=== PATIENT | female | born 1950 | race Caucasian/White ===

== ENCOUNTER 2022-03-07 08:07 | Outpatient (CLI) | payer MEDICARE, OTHER, SELFPAY ==
[2022-03-07 19:06] LABS: Basophils Absolute Auto 0.1 K/mm3 (0.0-0.1); Basophils Percent Auto 1.5 % (0.2-1.2); Eosinophils Absolute Auto 0.2 K/mm3 (0-0.3); Eosinophils Percent Auto 3.9 % (0-4.4); Hematocrit 41.9 % (37.0-47.0); Hemoglobin 13.7 g/dL (12.0-15.0); Immature Granulocyte Absolute 0.02 K/mm3 (0.00-0.031); Immature Granulocyte Percent A 0.4 % (0-0.5); Lymphocytes Absolute Auto 1.08 K/mm3 (0.9-3.2); Lymphocytes Percent Auto 20.3 % (18.3-44.2); Mean Corpuscular HGB Conc 32.7 g/dl (32-36); Mean Corpuscular Hemoglobin 29.9 pg (26-34); Mean Corpuscular Volume 91.5 fl (80-100); Mean Platelet Volume 11.1 fl (7.4-10.4); Monocytes Absolute Auto 0.6 K/mm3 (0.1-0.6); Monocytes Percent Auto 11.1 % (2.6-8.5); Neutrophils Absolute Auto 3.4 K/mm3 (1.3-6.7); Neutrophils Percent Auto 62.8 % (45.5-73.1); Platelet Count Result 202 k/mm3 (150-375); Red Blood Count 4.58 M/mm3 (4.2-5.4); Red Cell Distribution Width 13.2 % (11.5-14.5); White Blood Count 5.3 K/mm3 (4.5-10.0)
[2022-03-07 20:13] LABS: Alanine Aminotransferase 16 U/L (6-35); Albumin Level 4.4 g/dL (3.5-5.1); Alkaline Phosphatase 91 U/L (38-126); Anion Gap 13 mmol/L (8-16); Aspartate Amino Transferase 28 U/L (14-36); Bilirubin,Total 0.3 mg/dL (0.2-1.3); Blood Urea Nitrogen 14 mg/dL (7-17); Calcium 9.4 mg/dL (8.4-10.2); Carbon Dioxide 24 mmol/L (22-30); Chloride 104 mmol/L (98-107); Cholesterol 232 mg/dL (0-200); Estimated Glomerular Filt Rate > 60; Glucose 97 mg/dL (65-110); HDL Direct 73 mg/dL; Potassium 3.7 mmol/L (3.4-5.0); Sodium 141 mmol/L (137-145); Triglycerides 94 mg/dL (<150)
[2022-03-07 20:24] LABS: LDL Cholesterol Direct 101 mg/dL
[2022-03-07 20:27] LABS: Vitamin D 25 Hydroxy 99.9 ng/mL
== END 2022-03-07 08:08 | disposition home or self-care (01) ==
PROVIDERS: PCP Family Medicine; Visit Provider Physician Assistant
DX: M81.0 Age-related osteoporosis without current pathological fracture (principal); Z00.00 Encounter for general adult medical examination without abnormal findings; Z51.81 Encounter for therapeutic drug level monitoring; Z79.899 Other long term (current) drug therapy
CPT/HCPCS: 36415; 80053; 80061; 82306; 84443; 85025

== ENCOUNTER → 2022-03-21 09:50 | Outpatient (CLI) | payer MEDICARE, OTHER, SELFPAY ==
--- NOTE | ~2022-03-21 | DEXA_ITS ---
Bone Density Report Name: FABIAN HUBBARD Age: 71 Sex: Female Ethnicity: White Date of : 1950 Indication: postmenopausal; screening for osteoporosis; parental hip fracture; height loss; Referring Provider: Luciana Araujo Study: Bone densitometry was performed. Exam Date: March 21, 2022 Accession number: [id number] Bone Density: Region BMD T-score Z-score Classification AP Spine (L1-L4) 0.723 -2.9 -0.9 Osteoporosis Femoral Neck (Left) 0.599 -2.3 -0.5 Osteopenia Total Hip (Left) 0.746 -1.6 -0.1 Osteopenia Femoral Neck (Right) 0.534 -2.8 -1.1 Osteoporosis Total Hip (Right) 0.709 -1.9 -0.4 Osteopenia Total Hip Mean 0.728 -1.8 -0.3 Osteopenia World Health Organization criteria for BMD impression classify patients as: Normal (T-score at or above -1.0), Osteopenia (T-score between -1.0 and -2.5), or Osteoporosis (T-score at or below -2.5). 10-year Fracture Risk: FRAX not reported because: Some T-score for Spine Total or Hip Total or Femoral Neck at or below -2.5 Clinical Information Provided by Patient: Parent has had a hip fracture Has used the following medications: Calcium Patient maximum height was 59.5 Menopause Age: 52 Drinks caffeinated beverages Onset of menses at age 17 Number of children 2 Missed period for more than 6 months in a row Impression: The patient has osteoporosis, based on the Total Spine T-score. The patient has risk factors, including: parental hip fracture. Discussion: INCREASED RISK OF FRACTURE. BONE DENSITY IS UNDESIRABLY LOW AT ONE OR MORE SKELETAL SITES, CONSISTENT WITH POSTMENOPAUSAL OSTEOPOROSIS. This patient's lowest T-score meets the World Health Organization's (WHO) criteria for osteoporosis at one or more sites (T-score -2.5 or below). In untreated patients, the risk of osteoporotic fracture increases approximately two-fold for each 1.0 SD decrease in T-score. Low bone density is not the only risk factor for fracture; also consider factors such as patient's age, frailty or poor health, risk of falling, risk of injury, previous osteoporotic fracture, family history of osteoporosis, cigarette smoking, low body weight, etc. Not everyone with low bone mineral density has osteoporosis; osteomalacia and other metabolic bone disorders should also be considered. Patients who have osteoporosis should be evaluated for specific diseases and conditions (secondary causes) that may cause or contribute to bone loss. The [place] Association of Clinical Endocrinologists (AACE) and National Osteoporosis Foundation (NOF) recommend pharmacologic intervention for all postmenopausal women whose T-score is in this range. The patient should follow a healthful lifestyle (good nutrition with adequate calcium and vitamin D, and appropriate weight-bearing exercise). Follow-Up: Consider a lizzie
== END ==
PROVIDERS: PCP Family Medicine; Visit Provider Physician Assistant
DX: Z78.0 Asymptomatic menopausal state (principal); M85.89 Other specified disorders of bone density and structure, multiple sites; M81.0 Age-related osteoporosis without current pathological fracture
CPT/HCPCS: 77080

== ENCOUNTER → 2022-06-04 12:46 | Outpatient (CLI) | payer MEDICARE, OTHER, SELFPAY ==
--- NOTE | ~2022-06-04 | MM_ITS ---
EXAMINATION: MM scrn gaston implant BI w eber HISTORY: Screening mammogram TECHNIQUE: Craniocaudal and mediolateral oblique 3-D tomosynthesis images with implant displacement a nd synthetic 2-D images were generated. Craniocaudal and mediolateral oblique views of the breasts wi thout implant displacement were obtained using full field digital mammography. CAD analysis was submi tted and interpreted. COMPARISON: 04/11/2015 BREAST PARENCHYMAL COMPOSITION: There are scattered areas of fibroglandular density. FINDINGS: There is no evidence of suspicious mass, calcification, or architectural distortion to sugg est malignancy in either breast. There has been no suspicious interval change. IMPRESSION: 1. No mammographic evidence of malignancy. 2. Recommend routine screening mammography in one year. BI-RADS Category 1: Negative Reviewed, dictated and finalized at location A. ENDER CUTTER
== END ==
PROVIDERS: PCP Family Medicine; Visit Provider Physician Assistant
DX: Z12.31 Encounter for screening mammogram for malignant neoplasm of breast (principal)
CPT/HCPCS: 77063; 77067

== ENCOUNTER 2023-03-11 11:44 | Outpatient (CLI) | payer MEDICARE, OTHER, SELFPAY ==
[2023-03-11 18:52] LABS: Anion Gap 5 mmol/L (8-16); Blood Urea Nitrogen 11 mg/dL (7-17); Calcium 9.4 mg/dL (8.4-10.2); Carbon Dioxide 29 mmol/L (22-30); Chloride 104 mmol/L (98-107); Cholesterol 250 mg/dL (0-200); Estimated Glomerular Filt Rate > 60; Glucose 89 mg/dL (65-110); HDL Direct 78 mg/dL; Potassium 4.1 mmol/L (3.4-5.0); Sodium 138 mmol/L (137-145); Triglycerides 118 mg/dL (<150)
[2023-03-11 19:03] LABS: LDL Cholesterol Direct 109 mg/dL
[2023-03-11 19:13] LABS: Thyroid Stimulating Hormone 0.339 uIU/mL (0.465-4.680)
[2023-03-11 19:25] LABS: Vitamin D 25 Hydroxy 72.2 ng/mL
[2023-03-11 19:41] LABS: Basophils Absolute Auto 0.1 K/mm3 (0.0-0.1); Basophils Percent Auto 1.7 % (0.2-1.2); Eosinophils Absolute Auto 0.2 K/mm3 (0-0.3); Eosinophils Percent Auto 2.3 % (0-4.4); Hematocrit 41.9 % (37.0-47.0); Hemoglobin 13.9 g/dL (12.0-15.0); Immature Granulocyte Absolute 0.02 K/mm3 (0.00-0.031); Immature Granulocyte Percent A 0.3 % (0-0.5); Lymphocytes Absolute Auto 1.58 K/mm3 (0.9-3.2); Lymphocytes Percent Auto 23.8 % (18.3-44.2); Mean Corpuscular HGB Conc 33.2 g/dl (32-36); Mean Corpuscular Hemoglobin 30.2 pg (26-34); Mean Corpuscular Volume 91.1 fl (80-100); Mean Platelet Volume 10.9 fl (7.4-10.4); Monocytes Absolute Auto 0.7 K/mm3 (0.1-0.6); Neutrophils Absolute Auto 4.1 K/mm3 (1.3-6.7); Neutrophils Percent Auto 61.9 % (45.5-73.1); Platelet Count Result 238 k/mm3 (150-375); Red Cell Distribution Width 12.4 % (11.5-14.5); White Blood Count 6.6 K/mm3 (4.5-10.0)
[2023-03-11 20:17] LABS: Hepatitis C Virus Antibody Negative (Negative)
== END 2023-03-11 11:45 | disposition home or self-care (01) ==
LOC: ANHGOSHLAB 11:45
PROVIDERS: PCP Family Medicine; Visit Provider Nurse Practitioner Family
DX: J31.0 Chronic rhinitis (principal); M81.0 Age-related osteoporosis without current pathological fracture; R09.89 Other specified symptoms and signs involving the circulatory and respiratory systems
CPT/HCPCS: 36415; 80048; 80061; 82306; 84443; 85025; 86803

== ENCOUNTER 2023-03-17 08:02 | Emergency (ER) | payer MEDICARE, OTHER, SELFPAY ==
--- NOTE | 2023-03-17 08:03 | ED.URI ---
HPI - URI/Sore Throat General Chief Complaint: Upper Respiratory Infection Stated Complaint: COUGH Time Seen by Provider: 03/17/23 08:02 Source: patient Mode of arrival: ambulatory Limitations: no limitations History of Present Illness HPI Narrative: Patient is a 72-year-old female who presents with 4 days of cough and congestion. Patient states this started as congestion and headache and has settled into her chest causing cough. Patient states her throat hurts from coughing and is keeping her up at night. Patient has tried Mucinex DM in Tylenol and ibuprofen with no relief. Patient states she got her flu shot on Friday. Patient has done self COVID tests that have been negative. Denies any fever, chills, nausea, vomiting, diarrhea. Related Data Allergies Allergy/AdvReac Type Severity Reaction Status Date / Time amoxicillin Allergy Severe THROAT Verified 03/17/23 08:12 SWELLING clavulanic acid Allergy Severe THROAT Verified 03/17/23 08:12 SWELLING alendronate sodium AdvReac Other Verified 03/17/23 08:12 [From Fosamax] denosumab [From Prolia] AdvReac Other Verified 03/17/23 08:12 ANESTHESIA AdvReac Severe PONV Uncoded 03/17/23 08:12 Review of Systems Review of Systems: All systems reviewed & are unremarkable except as noted in HPI and below Constitutional: Constitutional: Denies body ache(s), Denies chills, Denies fatigue, Denies fever(s), Denies headache(s), Denies malaise and Denies weakness Eyes: Eyes: Denies blurry vision, Denies itchy eyes and Denies loss of vision ENT: Denies otalgia, Denies headache(s), Reports nasal congestion, Denies sinus pain and Reports sore throat Cardiovascular: Cardiovascular: Denies chest pain, Denies irregular heart rhythm and Denies dyspnea Respiratory: Respiratory: Reports cough and Denies dyspnea Gastrointestinal: Gastrointestinal: Denies abdominal pain, Denies diarrhea, Denies nausea and Denies vomiting Musculoskeletal: Musculoskeletal: Denies back pain, Denies myalgias and Denies arthralgias Integumentary/Breasts: Skin/Breast: Denies pruritus and Denies rash Neurologic: Denies headache(s), Denies loss of vision and Denies weakness Psychiatric: Psychiatric: Reports no additional psychiatric complaints Endocrine: Endocrine: Denies fatigue Allergic/Immunologic: Allergic/Immunologic: Denies itchy eyes PMFSH Past Medical History Medical History Osteoporosis Family History Family History Mother Cancer Hypertension Depression with anxiety Heart problem Social History Social History Smoking status: Never smoker Alcohol intake: never Substance use: never Lack of Transportation: No Lack of Food: Never True Current Housing: I Have Housing Concerned About Future Housing: No Difficulty Paying Gas/Electric Bills: No Difficulty Paying for Meds: No Currently Unemployed: No Education: Associate Degree Difficulty w/ Childcare or Family Care: No Comments At time of signature, agree with nursing past medical, surgical, social and family history. There is no relevant family history pertinent to the presenting complaint. Exam Const: General: cooperative, healthy appearing, comfortable, no acute distress and well nourished Nutritional Appearance: well nourished Orientation/consciousness: patient oriented x3 Limitations: no limitations HENMT: Head: normal to inspection, normocephalic and atraumatic Ears: hearing grossly normal bilaterally, external ears normal, TM's normal bilaterally, EAC's normal and no periauricular adenopathy Face/Nose/Sinus: Normal external nose present, Abnormal mucous membranes and turbinates present erythematous bilateral and diffuse, normal facial exam, sinuses nontender and face symmetric Face and sinus: normal facial exam, sinuses nontender and face
[2023-03-17 08:09] VITALS: BP 158/79; PULSE 90; RESP 18; TEMP 36.6; O2SAT 99
== END 2023-03-17 08:27 | disposition home or self-care (01) ==
PROVIDERS: Emergency Provider Nurse Practitioner Family; PCP Family Medicine
DX: J40 Bronchitis, not specified as acute or chronic (principal); M81.0 Age-related osteoporosis without current pathological fracture
CPT/HCPCS: 99213; G0463

== ENCOUNTER → 2023-03-24 11:47 | Outpatient (CLI) | payer MEDICARE, OTHER, SELFPAY ==
--- NOTE | ~2023-03-24 | XR_ITS ---
Clinical Indication: Acute bronchitis PA and lateral views of the chest: Comparison: None Findings: The lungs are clear, without evidence of focal consolidation or pleural effusion. Cardiome diastinal silhouette is within normal limits. Bones and soft tissues are unremarkable. Impression: Normal chest. Reviewed, dictated and finalized at location . Impression: Normal chest.
== END ==
PROVIDERS: PCP Physician Assistant; Visit Provider Physician Assistant
DX: J20.9 Acute bronchitis, unspecified (principal)
CPT/HCPCS: 71046

== ENCOUNTER 2023-04-18 10:40 | Outpatient (CLI) | payer MEDICARE, OTHER, SELFPAY ==
--- NOTE | ~2023-04-18 | MR_ITS ---
EXAMINATION: MR breast BI wo con INDICATION: Assess breast implant status TECHNIQUE: Axial T2 FSE ASSET, axial VIBRANT, Sagittal T2 FSE, Sagittal T2 STIR silicone SAT, Sagitta l STIR Water suppression COMPARISON: None FINDINGS: Motion artifact limits the examination. RIGHT BREAST: There is intracapsular rupture of the right breast implant. There is no definite eviden ce of silicone extravasation. No evidence of signal abnormalities in the axillary or internal mammary node distributions. LEFT BREAST: There is intracapsular rupture of the left breast implant. There is no definite evidence of silicone extravasation. No evidence of signal abnormalities in the axillary or internal mammary n ode distributions.] IMPRESSION: 1. Bilateral intracapsular breast implant rupture. BI-RADS Category 1: Negative Reviewed, dictated and finalized at location A. TECHNICIAN
== END 2023-04-18 10:41 | disposition home or self-care (01) ==
PROVIDERS: PCP Physician Assistant; Visit Provider Nurse Practitioner Family
DX: T85.43XA Leakage of breast prosthesis and implant, initial encounter (principal)
CPT/HCPCS: 77047

== ENCOUNTER 2023-06-03 08:09 | Outpatient (CLI) | payer MEDICARE, OTHER, SELFPAY ==
[2023-06-03 23:49] LABS: Free T4 Free Thyroxine 1.33 ng/mL (0.78-2.19)
[2023-06-04 00:04] LABS: Free T4 Free Thyroxine Reflex 1.31 ng/dL (0.78-2.19)
[2023-06-04 00:54] LABS: Total Triiodothyronine (T3) 1.16 NG/ML (0.97-1.69)
== END 2023-06-03 08:10 | disposition home or self-care (01) ==
LOC: ANHGOSHLAB 08:11
PROVIDERS: PCP Physician Assistant; Visit Provider Physician Assistant
DX: R79.89 Other specified abnormal findings of blood chemistry (principal); Z79.899 Other long term (current) drug therapy; L64.9 Androgenic alopecia, unspecified
CPT/HCPCS: 36415; 84439; 84443; 84480

== ENCOUNTER → 2023-06-10 11:13 | Outpatient (CLI) | payer MEDICARE, OTHER, SELFPAY ==
--- NOTE | ~2023-06-10 | US_ITS ---
EXAMINATION: US thyroid DATE: 06/10/2023 11:43 INDICATION: Abnormal thyroid function tests. TECHNIQUE: Multiple ultrasound images of the thyroid were obtained. COMPARISON: None. FINDINGS: The right thyroid lobe measures 4.2 x 1.9 x 1.0 cm. The left thyroid lobe measures 3.8 x 1.5 x 1.1 c m. In the right thyroid lobe, there is a 5 mm solid, hypoechoic, wider than tall nodule with smooth margin without echogenic foci (TI-RADS TR4). In the right thyroid lobe, there is a 4 mm nodule. In th e left thyroid lobe, there is a 4 mm nodule. IMPRESSION: 1. Small thyroid nodules, likely not clinically significant. No follow-up is needed. Reviewed, dictated and finalized at location A. D AUTOMOBILE ADJUSTER IMPRESSION: 1. Small thyroid nodules, likely not clinically significant. No follow-up is ne eded.
== END ==
PROVIDERS: PCP Nurse Practitioner Family; Visit Provider Nurse Practitioner Family
DX: E04.2 Nontoxic multinodular goiter (principal); R79.89 Other specified abnormal findings of blood chemistry
CPT/HCPCS: 76536

== ENCOUNTER 2023-07-10 00:31 | Day surgery (SDC) | payer OTHER, SELFPAY ==
[2023-06-30 14:39] VITALS: BMI 20.7
--- NOTE | 2023-06-30 14:57 | PC.NURSE ---
Report to the Outpatient Waiting Room, entrance under the green pavilion located off [facility], at time _0830 on date __07/10/23 . Planned Procedure Time: ___1030 . Time changes happen often and if your time is changed the preop area will call you the afternoon before. - You and your visitor will be asked to self-screen and do not enter if you have any COVID symptoms. - A mask is optional within the hospital at this time. Patients may have clear liquids (water, carbonated beverages, clear teas, apple juice) until 3 hours prior to surgery (0730 AM) with a maximum of 20 ounces. - No food from midnight until time of surgery - Infants may have breast milk until 4 hours before surgery, infant formula 6 hours prior to surgery. - Children will be allowed to drink immediately following surgery. If applicable, please bring a bottle or sippy cup to assist with drinking. Juice, water, soda, and popsicles are readily available. For infants on formula, please bring formula the day of surgery. Pacifiers are allowed. Take the following medications with a SIP of water the morning of surgery: __METHIMAZOLE, & EYE DROPS IF NEEDED___ DO NOT STOP ANY OF YOUR OTHER PRESCRIPTION MEDICATIONS PRIOR TO SURGERY ?EXCEPT THE FOLLOWING Medications to discontinue per physician Date to take last dose Please no make-up, nail luxembourgish, hairspray, perfume, deodorant, or body powder the day of surgery. No jewelry (including any body piercings) or valuables the day of surgery, leave them at home. Please take a shower or bath the night before, or the morning of, surgery with an antibacterial soap. Wear comfortable, loose fitting clothing. Children are encouraged to wear pajamas. - Jewelry must be removed prior to entering the operating room. Rings and piercings that are not removed may be cut off. - The hospital will not accept responsibility for valuables. - Please leave all valuables, including medications, at home the day of surgery. If you are going home after surgery, a licensed driver guard must drive you home. - NO public transportation without another adult if you receive anesthesia. - We recommend that an adult stay with you for 24 hours following discharge. - We also recommend that you do not drive, make important decision, drink alcoholic beverages, or take any drugs that were not prescribed by your health care provider for at least 24 hours after your discharge time. For Pediatric surgeries, we recommend two adults accompany the child home. Follow any additional instructions given to you from your surgeon. If you or anyone in your household have experienced Covid symptoms in the past week, please notify your surgeon or the nurse liaison at the phone number below for possible testing. Telephone instructions given to ___PT and asked if any additional questions and then verbalized understanding. Patient advised to call surgeon office or pre surgery nurse liaison [phone] if any additional questions.
[2023-07-10] VITALS (13 sets, daily range): BP systolic 112–165; BP diastolic 68–94; PULSE 64–95; RESP 12–20; TEMP 36.4–36.7; O2SAT 94–100
[2023-07-10] MEDS: LACTATED RINGERS 1,000 ML 30 ML IV CONT ×2 (09:05→12:38)
--- NOTE | 2023-07-10 09:17 | WPDANESEPPF ---
Anes - Initial Pre Proc Eval Procedure: Operation Date: 07/10/23 10:30 Proposed Procedures p Bilateral Breast Implant Exchange with Capsulectomy - Davian Felton MD Date/Time: 07/10/23 09:17 Surgeon: Davian Felton MD Pre Op Diagnosis: bilateral breast implant rupture Patient Data Age: 73 Gender: F Height: 1.49 m Weight: 45.9 kg Allergies Allergy/AdvReac Type Severity Reaction Status Date / Time amoxicillin Allergy Severe THROAT Verified 06/30/23 14:33 SWELLING clavulanic acid Allergy Severe THROAT Verified 06/30/23 14:33 SWELLING alendronate sodium AdvReac JAW ACH & Verified 07/10/23 08:45 [From Fosamax] WHOLE BODY ACHES denosumab [From Prolia] AdvReac JAW ACHE & Verified 07/10/23 08:45 WHOLE BODY ACHES ANESTHESIA AdvReac Severe PONV Uncoded 06/30/23 14:33 Home Medications Medication Instructions Recorded Confirmed Type inhalational spacing device #1 ea 03/17/23 06/30/23 Rx (Aerochamber MV spacer) methimazole 5 mg tablet 5 mg PO DAILY #30 tabs 06/13/23 07/10/23 Rx carboxymethylcellulose sodium 1 % 1 drp EACH EYE TID HS 06/30/23 07/10/23 History eye liquid gel drops peg 400-propylene glycol (PF) 0.4 1 drp EACH EYE TID PRN Dry Eye(S) 06/30/23 07/10/23 History %-0.3 % eye drops in a dropperette (Systane (PF)) Patient hx anesthesia problems: none Family hx anesthesia problems: none Results Review: All pre-operative results and documents have been reviewed as part of the pre-operative evaluation. [facility] Past Medical History Medical History (Updated 06/05/23 @ 11:55 by Moses Pastor PA-C) Osteoporosis Surgical History Surgical History (Updated 07/10/23 @ 09:18 by Toño Hubbard MD) History of augmentation of both breasts Family History Family History Mother Cancer Hypertension Depression with anxiety Heart problem Social History Social History Smoking packs per day: 1 Smoking cigarettes per day: 20.0 Years smoked: 17 Smoking pack-years: 17.00 Smoking status: Former smoker Tobacco type: cigarettes Second hand tobacco smoke exposure: No Smoking end date: 06/02/85 Alcohol intake: never Substance use: never Substance use type: does not use Lack of Transportation: No Lack of Food: Never True Current Housing: I Have Housing Concerned About Future Housing: No Difficulty Paying Gas/Electric Bills: No Difficulty Paying for Meds: No Currently Unemployed: No Education: Associate Degree Difficulty w/ Childcare or Family Care: No Living arrangements: with family Spiritual care concerns: No Anes - Eval Final PreProcedure Day of Procedure 07/10/23 09:17 Patient weight: normal Heart: regular rate and rhythm Lungs: clear to auscultation Airway: Mallampati scale class II Neurological: alert and oriented Last oral intake: >/= 8 hours ASA classification: II Emergent: no Anesthetic plan: proceed Anesthesia type and monitoring: general LMA and standard monitoring Results Review: All pre-operative results and documents have been reviewed as part of the pre-operative evaluation. Informed Consent: The patient's anesthetic plan and its attendant risks and benefits were discussed with the patient/family/POA. Questions were solicited and answers provided to the satisfaction of the patient/family/POA.
--- NOTE | 2023-07-10 10:31 | WPDHPUPDATE1 ---
History and Physical Update Update Date/Time: 07/10/23 10:31 History and Physical has been reviewed, including an updated exam of the patient. There are NO changes in the patient's condition. Risks, benefits, and alternatives have been discussed and questions answered. Patient agrees to proceed with procedure.
--- NOTE | 2023-07-10 10:38 | W.PM.PROC2 ---
Procedure Note - Detailed Date of Procedure 07/10/23 Pre-op Diagnosis bilateral breast implant rupture Post-op Diagnosis Same Procedure Performed Bilateral breast implant exchange Surgeon Davian Felton MD Anesthesia General Findings Old Implants: Bilateral intracapsular rupture No identifying markings on implants Previously left IMF significantly below right. Submuscular with intact inferior pectoralis New implants: Bilateral Jaky Ratliff SoftTouch 295cc Right - REF# [id number] SN [id number] Left - REF# [id number] SN [id number] Description of Procedure Preoperatively the risks, benefits, alternatives were discussed in extensive detail. I wanted to be very realistic about the risks involved as well as expectations. I was clear about how we could actually make her worse. Answered all questions to satisfaction. Voiced a clear understanding. Consent obtained. She was taken the operating room placed supine on the operating room table. Anesthesia provided by anesthesiology and prepped and draped in a standard sterile fashion. Surgical time-out was taken. 1% lidocaine and 0.25% Marcaine with epinephrine was used to provide a field block. Tegaderm nipple thakur were placed. Fifteen blade used to excise the previous IMF scars. Dissection was continued down until the capsules were identified and excised a significant portion of the capsule which was sent to pathology. These were densly adherent to the pectoralis which limited removal without significant muscle injury. I then copiously irrigated with 3 L of saline solution on TUR tubing. Verified strict hemostasis. I then irrigated with Betadine containing solution. Using a no-touch technique and a Mcfarland funnel the implant was introduced into the pocket. This was closed with 2-0 PDS followed by 3-0 Monocryl and a running subcuticular 4-0 Monocryl followed by tissue glue. Dressings were placed. She was woken taken to the PACU without difficulty. All instrument sponge counts were correct at the end of the case. Estimated Blood Loss 5 Drains No Packing No Pathology Yes (Bilateral breast capsules) Complications No immediate complications Condition Stable Disposition PACU
[2023-07-10] MEDS: TRANEXAMIC ACID 1,000MG/ISO100 1,000 MG/100 ML BAG 200 MG IVPB (11:09)
[2023-07-10] MEDS: NACL 0.9% IRRIG POUR BOTTLE 900 ML, GENTAMICIN SULFATE INJ 160 MG, CLINDAMYCIN PHOS INJ... IRRIGATION (11:10)
[2023-07-10] MEDS: BUPivacaine HCL 0.25% PF 30 ML VIAL INFILTRATE (11:10)
[2023-07-10] MEDS: ceFAZolin 2 GM/D5W 50 ML 2 GM/50 ML BAG IVPB (11:19)
[2023-07-10] MEDS: LIDO 1%/EPINEPHRINE 1:100,000 50 ML VIAL 30 ML INFILTRATE (11:47)
[2023-07-10] MEDS: fentaNYL CITRATE INJ (*CRX) 100 MCG/2 ML VIAL 25 MCG IV PUSH (13:42)
[2023-07-10] MEDS: ONDANSETRON INJ 4 MG/2 ML VIAL IV PUSH (13:45)
[2023-07-10] MEDS: diphenhydrAMINE HCl INJ 50 MG/ML VIAL 25 MG IV PUSH (14:01)
[2023-07-10] MEDS: oxyCODONE HCL (*CRX) 5 MG TAB IR PO (15:18)
== END 2023-07-10 15:55 | disposition home or self-care (01) ==
PROVIDERS: PCP Nurse Practitioner Family; Visit Provider Surgery Plastic and Reconstructive Surgery
PROC: (CPT 19342; principal; 2023-07-10 10:30)
DX: T85.41XA Breakdown (mechanical) of breast prosthesis and implant, initial encounter (principal); Y83.8 Other surgical procedures as the cause of abnormal reaction of the patient, or of later complication, without mention of misadventure at the time of the procedure; Z87.891 Personal history of nicotine dependence
CPT/HCPCS: 19371; 19325; 88184; 88304; A9270; J0690; J1100; J1200; J1580; J2001; J2405; J2704; J3010; J7120

== ENCOUNTER 2023-07-25 09:32 | Outpatient (CLI) | payer MEDICARE, OTHER, SELFPAY ==
[2023-07-25 21:25] LABS: Free T4 Free Thyroxine 1.03 ng/mL (0.78-2.19)
== END 2023-07-25 09:33 | disposition home or self-care (01) ==
PROVIDERS: PCP Nurse Practitioner Family; Visit Provider Nurse Practitioner Family
DX: R79.89 Other specified abnormal findings of blood chemistry (principal); Z79.899 Other long term (current) drug therapy
CPT/HCPCS: 36415; 84439; 84443

== ENCOUNTER 2023-09-15 14:14 | Outpatient (CLI) | payer MEDICARE, OTHER, SELFPAY ==
--- NOTE | ~2023-09-15 | XR_ITS ---
EXAMINATION: XR chest 2V Exam Date/Time: 09/15/2023 14:18 CDT HISTORY: R06.2 - Wheezing Comparison: 03/24/2023. RESULT: Lines, tubes, and devices: None. Lungs and pleura: Clear. Cardiomediastinal silhouette: Stable. Other: No acute osseous or upper abdominal finding. IMPRESSION: No acute cardiopulmonary process. Reviewed, dictated and finalized at location K.
== END 2023-09-15 14:15 ==
LOC: MICIMG 14:17
PROVIDERS: PCP Nurse Practitioner Family; Visit Provider Nurse Practitioner Family
DX: R06.2 Wheezing (principal)
CPT/HCPCS: 71046

== ENCOUNTER 2024-03-16 09:42 | Outpatient (CLI) | payer MEDICARE, OTHER, SELFPAY ==
[2024-03-16 19:23] LABS: Basophils Absolute Auto 0.1 K/mm3 (0.0-0.1); Basophils Percent Auto 1.5 % (0.2-1.2); Eosinophils Absolute Auto 0.1 K/mm3 (0-0.3); Eosinophils Percent Auto 1.1 % (0-4.4); Hematocrit 43.3 % (37.0-47.0); Hemoglobin 14.4 g/dL (12.0-15.0); Immature Granulocyte Absolute 0.03 K/mm3 (0.00-0.031); Immature Granulocyte Percent A 0.4 % (0-0.5); Lymphocytes Absolute Auto 1.32 K/mm3 (0.9-3.2); Lymphocytes Percent Auto 17.8 % (18.3-44.2); Mean Corpuscular HGB Conc 33.3 g/dl (32-36); Mean Corpuscular Hemoglobin 30.3 pg (26-34); Mean Platelet Volume 11.1 fl (7.4-10.4); Monocytes Absolute Auto 0.6 K/mm3 (0.1-0.6); Monocytes Percent Auto 8.4 % (2.6-8.5); Neutrophils Absolute Auto 5.3 K/mm3 (1.3-6.7); Neutrophils Percent Auto 70.8 % (45.5-73.1); Platelet Count Result 236 k/mm3 (150-375); Red Blood Count 4.76 M/mm3 (4.2-5.4); Red Cell Distribution Width 12.6 % (11.5-14.5); White Blood Count 7.4 K/mm3 (4.5-10.0)
[2024-03-16 19:33] LABS: Alanine Aminotransferase 19 U/L (6-35); Albumin Level 4.2 g/dL (3.5-5.1); Alkaline Phosphatase 96 U/L (38-126); Anion Gap 9 mmol/L (4-12); Aspartate Amino Transferase 41 U/L (14-36); Bilirubin,Total 0.7 mg/dL (0.2-1.3); Blood Urea Nitrogen 14 mg/dL (7-17); Calcium 9.3 mg/dL (8.4-10.2); Carbon Dioxide 27 mmol/L (22-30); Chloride 104 mmol/L (98-107); Cholesterol 236 mg/dL (0-200); Estimated Glomerular Filt Rate > 60; Glucose 83 mg/dL (65-110); HDL Direct 90 mg/dL; Potassium 3.5 mmol/L (3.4-5.0); Sodium 140 mmol/L (137-145); Triglycerides 104 mg/dL (<150)
[2024-03-16 19:41] LABS: Vitamin D 25 Hydroxy 67.4 ng/mL
[2024-03-16 19:45] LABS: LDL Cholesterol Direct 90 mg/dL
== END 2024-03-16 09:43 | disposition home or self-care (01) ==
LOC: ANHGOSHLAB 09:43
PROVIDERS: PCP Nurse Practitioner Family; Visit Provider Nurse Practitioner Family
DX: R79.89 Other specified abnormal findings of blood chemistry (principal); R09.89 Other specified symptoms and signs involving the circulatory and respiratory systems; M81.0 Age-related osteoporosis without current pathological fracture; E55.9 Vitamin D deficiency, unspecified; Z79.899 Other long term (current) drug therapy
CPT/HCPCS: 36415; 80053; 80061; 82306; 84443; 85025

== ENCOUNTER 2024-09-01 10:28 | Outpatient (CLI) | payer MEDICARE, OTHER, SELFPAY ==
--- OUTSIDE RECORDS SUMMARY | 2024-09-01 11:51 | XMS_ITS | Clinical Summary ---
Author Organization [facility] Physician Office Building [address] [place] [id number] Care Team Providers Care Body Trimmer Upholsterer Name Role Phone Kelly, [facility] Primary Care Provider [phone] Haris Fisher MD Unavailable Allergies Active Allergy Reactions Criticality Noted Date Comments Amoxicillin-Pot Clavulanate Anaphylaxis High 018 Alendronate Other (See comments) Low 05/12/2018 Jaw pain Medications CALTRATE WITH VITAMIN D3 600 mg(1,500mg) -800 unit per tablet 04/21/2018 Act lupe ergocalciferol (VITAMIN D) 50,000 unit capsule 04/21/2018 Active PREMARIN vaginal cream 03/13/2018 Active denosumab (PROLIA) 60 mg/mL syringe Inject 1 mL (60 mg total) under the skin once for 1 dose. 1 mL 05/12/2018 Active azelastine (ASTELIN) 137 mcg (0.1 %) nasal spray 05/19/2019 Active Active Problems Problem Noted Date Diagnosed Date Sensorineural hearing loss ( SNHL) of left ear with restricted hearing of right ear 07/02/2019 Assessment & Plan (07/02/2019 3:15 PM SENIOR RELATIONSHIP MANAGER): Medically cleared for hearing Aids Eliminate background when having a conversation Reduce caffeine intake, then water or other caffeine free fluids throughout the rest of the day for at least one month Tinnitus Etiology discussed and Handout provided Chronic rhinitis 07/02/2019 Assessment & Plan (07/02/2019 3:15 PM SENIOR RELATIONSHIP MANAGER): Astelin 2 sprays into each nostril while looking down over the sink, do not sniff in or blow nose after use daily Call if no improvement for change to Atrovent Localized osteoporosis witho ut current pathological fracture 05/12/2018 Assessment & Plan (05/12/2018 3:54 PM SENIOR RELATIONSHIP MANAGER): Daily weight bearing exercise Fall precautions discussed 1200 mg daily elemental calcium intake recommended 800-1000 IU of vid D recommended. Check serum vit D levels, PTH, 24 h urine calcium Might recommended Prescription vit D if very low levels are found. Start Prolia. Surgical History Surgery Date Site/Laterality Comments SECTION 2 TRANSUMBILICAL AUGMENTATION MAMMAPLASTY CARPAL TUNNEL RELEASE Right Medical History Medical History Date Comments Vitamin D deficiency Endometriosis Family History Medical History Relation Name Comments Diabetes Brother Cancer Mother Heart failure Mother Hypertension Mother Kidney disease Mother Relation Name Status Comments Brother Alive Mother Social History Tobacco Use Types Packs/Day Years Used Date Smoking Tobacco: Former Cigarettes Smokeless Tobacco: Never Alcohol Use Standard Drinks/Week Comments No 0 (1 standard drink = 0.6 oz pur e alcohol) Personal Safety Answer Date Recorded Getting School Help Needed Not on file 08/16 Comments Unknown Sex and Gender Information Value Date Recorded Sex Assigned at Not on file Legal Sex Female 9:06 AM SENIOR RELATIONSHIP MANAGER Gender Identity Not on file Sexual Orientation Not on file Obstetrics History Last Filed Vital Signs Vital Sign Reading Time Taken Comments Blood Pressure 146/92 07/02/2019 10:18 AM SENIOR RELATIONSHIP MANAGER Pulse 74 07/02/2019 10:18 AM SENIOR RELATIONSHIP MANAGER Temperature 36.4 C (97.6 F) 07/02/2019 10:18 AM SENIOR RELATIONSHIP MANAGER Respiratory Rate 14 05/12/2018 2:55 PM SENIOR RELATIONSHIP MANAGER Oxygen Saturation - - Inhaled Oxygen Concentration - - Weight 48.5 kg (107 lb) 07/02/2019 10:18 AM SENIOR RELATIONSHIP MANAGER Height 149.9 cm (4' 11 ) 07/02/2019 10:18 AM SENIOR RELATIONSHIP MANAGER Body Mass Index 21.61 07/02/2019 10:18 AM SENIOR RELATIONSHIP MANAGER Plan of Treatment Not on file Insurance MEDICARE FOR LIFE Care Teams Body Trimmer Upholsterer Relationship Specialty Start Date End Date [facility] [address] [place] [address] PCP - General 05/04/18 [place] [id number] [facility] [address] [place] [address] Consulting Physician Endocrinology Diabetes & Metabolism 05/11/18
--- OUTSIDE RECORDS SUMMARY | 2024-09-01 11:51 | XMS_ITS | Encounter Summary ---
Author Organization [facility] Address [address] [place] [address] Care Team Providers Care Manager Workers Compensation Name Role Phone Charanjit Klein MD Primary Care Provider +1- [phone] Encounter Details Date Type Department Care Team (Late st Contact Info) Description 07/17/2018 Community Orders [facility] EPICCARE LINK Charanjit Klein MD [address] [place] [phone] Social History Tobacco Use Types Packs/Day Years Used Date Smoking Tobacco: Never Assessed Comments Unknown Sex and Gender Information Value Date Recorded Sex Assigned at Not on file Legal 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 Gender Identity Not on file Sexual Orientation Not on file documented as of this encounter Plan of Treatment Not on file documented as of this encounter Results * XR KNEE RT 3 VIEW (07/17/2018 2:24 PM DIE MACHINE OPERATOR) Anatomical Region Laterality Modality Knee Radiographic Jennifer ging 07/17/2018 2:29 PM DIE MACHINE OPERATOR Narrative 07/17/2018 2:30 PM DIE MACHINE OPERATOR PATIENT NAME: SHAUNA BENAVIDEZ EXAM: Right knee 3 view DATE OF EXAM: 07/17/2018 COMPARISON EXAM: None INDICATION: Chronic lateral knee pain TECHNIQUE: AP, lateral and sunrise views FINDINGS: No soft tissue of normality. No evidence of joint effusion. No fracture or dislocation. No evidence of focal bone destructive lesion. Joint spaces are well-maintained. IMPRESSION: 1. NO SIGNIFICANT RADIOGRAPHIC ABNORMALITY. Signed: Salas Paulson MD Interpreted By: Salas Paulson MD, 07/17/2018 2:29 PM Procedure Note Salas Paulson MD - 07/17/2018 PATIENT NAME: SHAUNA BENAVIDEZ EXAM: Right knee 3 view DATE OF EXAM: 07/17/2018 COMPARISON EXAM: None INDICATION: Chronic lateral knee pain TECHNIQUE: AP, lateral and sunrise views FINDINGS: No soft tissue of normality. No evidence of joint effusion. Nofracture or dislocation. No evidence of focal bone destructive lesion.Joint spaces are well-maintained. IMPRESSION: 1. NO SIGNIFICANT RADIOGRAPHIC ABNORMALITY. Signed: Salas Paulson MD Interpreted By: Salas Paulson MD, 07/17/2018 2:29 PM Charanjit Klein MD GENERAL IMAGING Final Resu lt * XR KNEE LT 3 VIEW (07/17/2018 2:24 PM DIE MACHINE OPERATOR) Anatomical Region Laterality Modality Knee Radiographic Jennifer ging 07/17/2018 2:28 PM DIE MACHINE OPERATOR Narrative 07/17/2018 2:29 PM DIE MACHINE OPERATOR PATIENT NAME: SHAUNA BENAVIDEZ EXAM: Left knee 3 view DATE OF EXAM: 07/17/2018 COMPARISON EXAM: None INDICATION: Chronic left knee pain TECHNIQUE: AP, lateral and sunrise views FINDINGS: No soft tissue of normality. No evidence of joint effusion. No fracture or dislocation. Joint spaces are well-maintained. IMPRESSION: 1. NO SIGNIFICANT RADIOGRAPHIC ABNORMALITY. Signed: Salas Paulson MD Interpreted By: Salas Paulson MD, 07/17/2018 2:28 PM Procedure Note Salas Paulson MD - 07/17/2018 PATIENT NAME: SHAUNA BENAVIDEZ EXAM: Left knee 3 view DATE OF EXAM: 07/17/2018 COMPARISON EXAM: None INDICATION: Chronic left knee pain TECHNIQUE: AP, lateral and sunrise views FINDINGS: No soft tissue of normality. No evidence of joint effusion. Nofracture or dislocation. Joint spaces are well-maintained. IMPRESSION: 1. NO SIGNIFICANT RADIOGRAPHIC ABNORMALITY. Signed: Salas Paulson MD Interpreted By: Salas Paulson MD, 07/17/2018 2:28 PM us Charanjit Klein MD GENERAL IMAGING Final Resu lt documented in this encounter Visit Diagnoses Diagnosis Knee pain- Primary Pain in joint, lower leg Knee pain Pain in joint, lower leg documented in this encounter Care Teams Manager Workers Compensation Relationship Specialty Start Date End Date Charanjit Klein MD PCP - General FAMILY PRACTICE 07/17/18 documented as of this encounter
--- OUTSIDE RECORDS SUMMARY | 2024-09-01 11:51 | XMS_ITS | Referral Summary ---
Author Organization [facility] Phys[facility] [address] [place] [id number] Care Team Providers Care Application Support Intern Name Role Phone Kelly, [facility] Primary Care Provider +1- [phone] Haris Fisher MD Unavailable Allergies Active Allergy [...] 07/02/2019 Assessment & Plan (07/02/2019 3:15 PM PLANT OPERATOR/SHIFT SUPERVISOR): Medically cleared for hearing Aids Eliminate background when having a conversation Reduce caffeine intake, then water or other caffeine free fluids throughout the rest of the day for at least one month Tinnitus Etiology discussed and Handout provided Chronic rhinitis 07/02/2019 Assessment & Plan (07/02/2019 3:15 PM PLANT OPERATOR/SHIFT SUPERVISOR): Astelin 2 sprays into each nostril while looking down over the sink, do not sniff in or blow nose after use daily Call if no improvement for change to Atrovent Localized osteoporosis witho ut current pathological fracture 05/12/2018 Assessment & Plan (05/12/2018 3:54 PM PLANT OPERATOR/SHIFT SUPERVISOR): Daily weight bearing exercise Fall precautions discussed 1200 mg daily elemental calcium intake recommended 800-1000 IU of vid D recommended. Check serum vit D levels, PTH, 24 h urine calcium Might recommended Prescription vit D if very low levels are found. Start Prolia. Social History Tobacco Use Types Packs/Day Years [...] on file Legal Sex Female 9:06 AM PLANT OPERATOR/SHIFT SUPERVISOR Gender Identity Not on file Sexual Orientation Not on file Last Filed Vital Signs Vital Sign Reading Time Taken Comments Blood Pressure 146/92 07/02/2019 10:18 AM PLANT OPERATOR/SHIFT SUPERVISOR Pulse 74 07/02/2019 10:18 AM PLANT OPERATOR/SHIFT SUPERVISOR Temperature 36.4 C (97.6 F) 07/02/2019 10:18 AM PLANT OPERATOR/SHIFT SUPERVISOR Respiratory Rate 14 05/12/2018 2:55 PM PLANT OPERATOR/SHIFT SUPERVISOR Oxygen Saturation - - Inhaled Oxygen Concentration - - Weight 48.5 kg (107 lb) 07/02/2019 10:18 AM PLANT OPERATOR/SHIFT SUPERVISOR Height 149.9 cm (4' 11 ) 07/02/2019 10:18 AM PLANT OPERATOR/SHIFT SUPERVISOR Body Mass Index 21.61 07/02/2019 10:18 AM PLANT OPERATOR/SHIFT SUPERVISOR Plan of Treatment Not on file Insurance MEDICARE FOR LIFE Care Teams Application Support Intern Relationship Specialty Start Date End Date [facility] [address] [place] [address] PCP - General 05/04/18 [place] [address] [place] [address] Consulting Physician Endocrinology Diabetes & Metabolism 05/11/18
--- OUTSIDE RECORDS SUMMARY | 2024-09-01 11:51 | XMS_ITS | Continuity of Care Document ---
Author Name [facility] Organization [facility] Care Team Providers Care Bad Cloth Checker Name Role Phone [facility] Unavailable Unavailable Medications Combined list of outpatient medications from Department of Defense and Veterans Affairs facilities.Medications provided include 1) outpatient medications from the last 15 months, and 2) patient-reported medications. Medication Details Route Status Patient Instructions Prescription Expires Prescription Number Last Dispense Date Ordering Provider Order Date Order Qty Source albuterol 90 mcg inhaler [8.5g] See Instruct ions, Inhale, # 8.5 g, 0 total refill(s ), Hard Stop Inhala tion (breat he in) Complet ed 03/24/2024 3 2023 8.5 Ambulat ory Pharmac y albuterol 90 mcg inhaler [8.5g] = 2 puff(s), Inhale, QID, # 8.5 g, 0 total refill(s ), Hard Stop Inhala tion (breat he in) Complet ed 03/16/2024 3 2023 8.5 Ambulat ory Pharmac y azithromyci n 250 mg tablet (6EA) 500 mg, Oral, # 6 EA, 0 total refill(s ), Hard Stop Oral (given by mouth) Complet ed 03/16/2024 3 2023 6.0 Ambulat ory Pharmac y benzonatate 100 mg capsule 100 mg, Oral, BID, # 14 EA, 0 total refill(s ), Hard Stop Oral (given by mouth) Complet ed 03/16/2024 3 2023 14.0 Ambulat ory Pharmac y benzonatate 200 mg capsule See Instruct ions, Oral, # 30 EA, 0 total refill(s ), Hard Stop Oral (given by mouth) Complet ed 03/23/2024 3 2023 30.0 Ambulat ory Pharmac y cycloSPORIN E 0.05% (PF) eye drops UD [30EA] See Instruct ions, # 60 EA, 3 total refill(s ), Soft Stop Ordered 5 2024 60.0 Ambulat ory Pharmac y fluorometho lone 0.25% eye drops (suspension ) [10mL] See Instruct ions, # 10 mL, 0 total refill(s ), Soft Stop Ordered 5 2024 10.0 Ambulat ory Pharmac y fluticasone 50 mcg/inh nasal spray [16g] 100 mcg, Nostril- Both, Daily, # 48 g, 0 total refill(s ), Hard Stop Nostri l-Both (into the nose) Complet ed 03/23/2024 3 2023 48.0 Ambulat ory Pharmac y fluticasone -vilanterol 100-25 mcg inh(60EA/30 Dose) = 1 puff(s), Inhale, Daily, # 60 EA, 0 total refill(s ), Hard Stop Inhala tion (breat he in) Complet ed 03/23/2024 3 2023 60.0 Ambulat ory Pharmac y fluticasone -vilanterol 100-25 mcg inh(60EA/30 Dose) = 1 puff(s), Inhale, Daily, # 60 EA, 0 total refill(s ), Hard Stop Inhala tion (breat he in) Discont inued 03/24/2023 3 2022 60.0 Ambulat ory Pharmac y inhaler spacer (Optichambe r) See Instruct ions, # 1 EA, 0 total refill(s ), Hard Stop Complet ed 03/16/2024 3 2023 1.0 Ambulat ory Pharmac y LORazepam 0.5 mg tablet 0.5 mg, 0, 0, # 5 EA, 0 total refill(s ), Hard Stop Complet ed 10/05/2023 3 2023 5.0 Ambulat ory Pharmac y loteprednol 0.5% eye drops (suspension ) [5mL] See Instruct ions, Eye-Both , # 5 mL, 1 total refill(s ), Hard Stop Both eyes Complet ed 03/24/2024 3 2023 5.0 Ambulat ory Pharmac y methIMAzole 5 mg tablet 5 mg, Oral, Daily, # 30 EA, 1 total refill(s ), Hard Stop Oral (given by mouth) Complet ed 06/12/2024 4 2024 30.0 Ambulat ory Pharmac y ondansetron 4 mg tablet See Instruct ions, Oral, # 30 EA, 0 total refill(s ), Hard Stop Oral (given by mouth) Complet ed 06/30/2024 4 2024 30.0 Ambulat ory Pharmac y predniSONE 20 mg tablet 40 mg, Oral, # 10 EA, 0 total refill(s ), Hard Stop Oral (given by mouth) Complet ed 03/16/2024 3 2023 10.0 Ambulat ory Pharmac y traMADol 50 mg tablet 50 mg, Oral, every 6 hr, # 30 EA, 0 total refill(s ), Hard Stop Oral (given by mouth) Complet ed 12/28/2023 4 2023 30.0 Ambulat ory Pharmac y Allergies, Adverse Reactions, Alerts Combined list of allergies from Department of Defense and Veterans Affairs facilities. It does not include entries that were removed or entered in error. Substance Category Reaction Severity Reaction type Status Date Reported Comments Source alendronate Propensity to adverse reactions to substance Unknown Active 8 jaw pain and teeth pain with Fosamax use Unknown Organiza tion amoxicillin- clavulanate Propensity to adverse reactions to substance Swelling of oral cavity structure Active 5 Unknown Organiza tion penicillins Propensity to adverse reactions to substance Unknown Active 4 rapid heart beat/ shortness of breath Unknown Organiza tion Immunizations Combined list of available immunizations from the Department of Defense and Veterans Affairs facilities. Immunization Series Date Given Administered By Site Reaction Lot Number CVX Code Drug Hand Profiler Status Comments Source RSV vaccine preF3, recombinant 2022 ETHANJPOCKLIN GTON Shoul keaton, left (delt oid) [id number] [employer] complet ed RSV vaccine preF3, recombina nt 04/15/23 Given 0055C-[id number] [facility] influenza, injectable, quadrivalent- pf 2020 zzLef t Arm [id number] 150 [employer] complet ed influenza , injectabl e, quadrival ent-pf 03/27/21 Given Ambulat ory Pharmac y COVID Vaccine Moderna 2020 zzLef t Arm [id number] complet ed COVID Vaccine Moderna 08/08/20 Given Ambulat ory Pharmac y COVID Vaccine Moderna 2020 zzLef t Arm [id number] complet ed COVID Vaccine Moderna 07/11/20 Given Ambulat ory Pharmac y zoster vaccine, inactivated 2019 zzLef t Arm [id number] 187 [employer] complet ed zoster vaccine, inactivat ed 05/23/20 Given Ambulat ory Pharmac y zoster vaccine, inactivated 2019 zzRig ht Arm [id number] 187 [employer] complet ed zoster vaccine, inactivat ed 03/22/20 Given Ambulat ory Pharmac y tetanus-dipht h toxoids (Td) adult/adol 2019 zzLef t Arm [id number] 09 sanofi pasteur complet ed tetanus-d iphth toxoids (Td) adult/ado l 03/22/20 Given Ambulat ory Pharmac y hepatitis B adult vaccine 2018 zzLef t Arm [id number] [employer] complet ed hepatitis B adult vaccine 03/02/19 Given Ambulat ory Pharmac y pneumococcal polysaccharid e, 23 valent 2018 zzLef t Arm [id number] [employer] complet ed pneumococ mike polysacch aride, 23 valent 03/02/19 Given Ambulat ory Pharmac y influenza, injectable, quadrivalent- pf 2017 zzLef t Arm [id number] 150 [employer] complet ed influenza , injectabl e, quadrival ent-pf 04/28/18 Given Ambulat ory Pharmac y pneumococcal 13-valent conjugate (PCV13) 2017 zzLef t Arm [id number] [employer] complet ed pneumococ mike 13-valent conjugate (PCV13) 07/22/17 Given Ambulat ory Pharmac y influenza, injectable, quadrivalent- pf 2017 zzLef t Arm [id number] 150 [employer] complet ed influenza , injectabl e, quadrival ent-pf 06/20/17 Given Ambulat ory Pharmac y hepatitis B adult vaccine 2016 zzLef t Arm [id number] 43 [employer] complet ed hepatitis B adult vaccine 05/02/17 Given Ambulat ory Pharmac y hepatitis B adult vaccine 2016 zzLef t Arm [id number] 43 [employer] complet ed hepatitis B adult vaccine 03/28/17 Given Ambulat ory Pharmac y influenza, injectable, quadrivalent [facility] [id number] 158 [employer] complet ed influenza , injectabl e, quadrival ent 03/05/16 Given Ambulat ory Pharmac y influenza, injectable, quadrivalent- pf 2014 zzLef t Arm [id number] 150 [employer] complet ed influenza , injectabl e, quadrival ent-pf 05/18/15 Given Ambulat ory Pharmac y influenza, injectable, quadrivalent 2013 zzLef t Arm [id number] [employer] complet ed influenza , injectabl e, quadrival ent 04/22/14 Given Ambulat ory Pharmac y zoster vaccine live 2013 zzLef t Arm [id number] [employer] complet ed zoster vaccine live 11/22/13 Given Ambulat ory Pharmac y influenza, seasonal, injectable-pf [facility] [id number] 140 sanofi pasteur complet ed influenza , seasonal, injectabl e-pf 03/05/13 Given Ambulat ory Pharmac y influenza, seasonal, injectable 2011 zzLef t Arm [id number] 141 [facility] complet ed influenza , seasonal, injectabl e 04/29/12 Given Ambulat ory Pharmac y tetanus, diphtheria, acellular pertu is 2009 zzLef t Arm [id number] 115 sanofi pasteur complet ed tetanus, diphtheri a, acellular pertussis 03/09/10 Given Ambulat ory Pharmac y influenza virus vaccine,[facility] [place] [id number] [employer] complet ed influenza virus vaccine,s plit 03/09/10 Given Ambulat ory Pharmac y influenza virus vaccine,split 2008 Body, whole TRANSCR IBED 15 complet ed influenza virus vaccine,s plit 03/25/09 Given Ambulat ory Pharmac y influenza virus vaccine,split 2007 zzLef t Arm [id number] 15 [employer] complet ed influenza virus vaccine,s plit 04/04/08 Given Ambulat ory Pharmac y influenza virus vaccine,split 2006 zzLef t Arm [id number] 15 [employer]oSmith[employer] complet ed influenza virus vaccine,s plit 03/26/07 Given Ambulat ory Pharmac y influenza virus vaccine,split 2005 zzLef t Arm [id number] 15 sanofi pasteur complet ed influenza virus vaccine,s plit 04/29/06 Given Ambulat ory Pharmac y tuberculin purified protein derivative 2000 zzLef t Arm [id number] 96 [employer] complet ed Patient Tolerance : Negative Ambulat ory Pharmac y influenza virus vaccine, whole virus 2000 zzLef t Arm [id number] 16 sanofi pasteur complet ed influenza virus vaccine, whole virus 05/18/01 Given Ambulat ory Pharmac y pneumococcal polysaccharid e, 23 valent 2000 zzLef t Arm [id number] [facility] complet ed pneumococ mike polysacch aride, 23 valent 05/18/01 Given Ambulat ory Pharmac y tuberculin purified protein derivative 1999 [id number] 96 [employer] complet ed Patient Tolerance : Negative Ambulat ory Pharmac y tetanus-dipht h toxoids (Td) adult/adol 1999 [id number] [employer] complet ed tetanus-d iphth toxoids (Td) adult/ado l 08/20/99 Given Ambulat ory Pharmac y tuberculin purified protein derivative 1997 [id number] 96 [employer] complet ed Patient Tolerance : Negative Ambulat ory Pharmac y poliovirus vaccine, live, oral 1997 [id number] 02 [facility] complet ed polioviru s vaccine, live, oral 06/21/97 Given Ambulat ory Pharmac y influenza virus vaccine, whole virus 1997 [id number] [facility] complet ed influenza virus vaccine, whole virus 06/21/97 Given Ambulat ory Pharmac y Procedures Combined list of: 1) Procedures from Department of Veterans Affairs facilities going back up to [facility] 18 months, not all VA non-surgical procedures are included; 2) All procedures from the Department of [facility] facilities. Procedure Procedure Type Code Date Perfomer Comments Sourc e No data available for this section Ambulatory P harmacy Social History Combined list of available smoking, tobacco, and other social history from Department of [facility] and Veterans Affairs facilities. Social History Type Response Date Comment Sourc e Sex Representation Female (finding) 04/03/2021 Unknown Organization Sexual Orientation Ambula tory Pharmacy Gender identity Ambulator y Pharmacy Assessment and Plan Combined list of future care activities from Department of Defense and [facility] facilities (e.g., assessment and plan notes, appointments, orders, and referrals). Additional future care activities may be listed in the Plan of Care section. Result Assessment and Plan Date Source Assessment and Plan Extracted from:Title : Imms RSV Author: JOSE HEATON Date: 04/15/23 Refer to screening questions under Channing Godinez on same encounter. Documenting care rendered for close out requirements. 09/01/2024 [address] [place] [address] Functional Status Combined list of recent functional and cognitive assessments recorded at Department of Defense and Veterans Affairs ([place]).VA Functional [place] Measurement (FIM) Scale: 1 = Total Assistance (Subject = 0% +), 2 = Maximal Assistance (Subject = 25% +), 3 = Moderate Assistance (Subject = 50% +), 4 = Minimal Assistance (Subject = 75% +), 5 = Supervision, 6 = Modified [place] (Device), 7 = Complete [place] (Timely, Safely). Assessment Date/Time Source Assessment Type Assessment Skill Assessment Score Assessment Details No data available for this section
--- OUTSIDE RECORDS SUMMARY | 2024-09-01 11:51 | XMS_ITS | Clinical Summary ---
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 Gender Identity Not on file Sexual Orientation Not on file Plan of Treatment Health Maintenance Due Date Last Done Comments Colorectal Cancer Screening Colonoscopy (10 Years) 1952 Hepatitis C 1970 DTaP, Tdap and Td Vaccines ( 1 - Tdap) 1971 Mammogram Screening 1992 Zoster Vaccines (1 of 2) 2002 Annual Medicare Wellness Visit 2017 Pneumococcal Vaccine: 65+ Ye ars (1 of 1 - PCV) 2017 COVID-19 Vaccine ( - 2023-2 5 season) 2024 RSV Immunization or 60+ Years (1 - 1-dose 75+ series) 2027 Dexa Scan (General) Completed 04/13/2018 Meningococcal B Vaccine Aged Out No l onger eligible based on patient's age to complete this topic Meningococcal Vaccine Aged Out No vasiliy steve eligible based on patient's age to complete this topic RSV Immunizations Under 20 Months Aged Out No longer eligible based on patient's age to complete this topic Procedures Procedure Name Priority Date/Time Associated Diagnosis Comments BONE DENSITY/DEXA Routine 04/13/2018 2:1 7 PM PARKING WORKER Menopausal and female climacteric states from Last 3 Months or Most Recently Relevant to Health Maintenance Results * BONE DENSITY/DEXA (04/13/2018 2:17 PM PARKING WORKER) Anatomical Region Laterality Modality Bone Mammography 04/13/2018 3:40 PM PARKING WORKER Narrative 04/13/2018 3:42 PM PARKING WORKER EXAMINATION: Bone Density Axial EXAM DATE/TIME: 04/13/2018 1:09 PM REASON FOR EXAM: Postmenopausal COMPARISON: None FINDINGS: DEXA bone densitometry The bone mineral density (BMD) was determined by dual-energy x-ray absorptiometry, the results are as follows: AP Lumbar Spine L2 through L4 BMD Patient (GM/SQCM): 0.796 T-Score (Standard deviations from young adult peak bone density): -2.6 Bilateral mean femoral neck: BMD Patient (GM/SQCM): 0.592 T-Score (Standard deviations from young adult peak bone density): -2.3 Total femur: BMD Patient (GM/SQCM): 0.790 T-Score (Standard deviations from young adult peak bone density): -1.2 ===== IMPRESSION:===== 1. Lumbar spine bone density: Osteoporosis 2. Bilateral femoral neck bone density: Osteopenia 3. Bilateral total hip bone density: Osteopenia Interpreted By: Manny Danielson MD, 04/13/2018 3:40 PM Procedure Note Manny Danielson MD - 04/13/2018 EXAMINATION: Bone Density Axial EXAM DATE/TIME: 04/13/2018 1:09 PM REASON FOR EXAM: Postmenopausal COMPARISON: None FINDINGS: DEXA bone densitometry The bone mineral density (BMD) was determined bydual-energy x-ray absorptiometry, the results are as follows: AP Lumbar Spine L2 through L4 BMD Patient (GM/SQCM): 0.796 T-Score (Standard deviations from young adult peak bonedensity): -2.6 Bilateral mean femoral neck: BMD Patient (GM/SQCM): 0.592 T-Score (Standard deviations from young adult peak bonedensity): -2.3 Total femur: BMD Patient (GM/SQCM): 0.790 T-Score (Standard deviations from young adult peak bonedensity): -1.2 ===== IMPRESSION:===== 1. Lumbar spine bone density: Osteoporosis 2. Bilateral femoral neck bone density: Osteopenia 3. Bilateral total hip bone density: Osteopenia Interpreted By: Manny Danielson MD, 04/13/2018 3:40 PM Berenice Leal NP DEXA Final Resu lt from Last 3 Months or Most Recently Relevant to Health Maintenance Insurance MEDICARE MEDICARE [facility] Care Teams Visual Basic Developer Relationship Specialty Start Date End Date Charanjit Klein MD PCP - General FAMILY PRACTICE 07/17/18
[2024-09-01 13:25] LABS: Basophils Absolute Auto 0.1 K/mm3 (0.0-0.1); Basophils Percent Auto 1.3 % (0.2-1.2); Eosinophils Absolute Auto 0.2 K/mm3 (0-0.3); Hematocrit 39.9 % (37.0-47.0); Hemoglobin 13.4 g/dL (12.0-15.0); Immature Granulocyte Absolute 0.01 K/mm3 (0.00-0.031); Immature Granulocyte Percent A 0.2 % (0-0.5); Lymphocytes Absolute Auto 1.26 K/mm3 (0.9-3.2); Lymphocytes Percent Auto 20.8 % (18.3-44.2); Mean Corpuscular HGB Conc 33.6 g/dl (32-36); Mean Corpuscular Hemoglobin 30.2 pg (26-34); Mean Corpuscular Volume 89.9 fl (80-100); Mean Platelet Volume 10.7 fl (7.4-10.4); Monocytes Absolute Auto 0.6 K/mm3 (0.1-0.6); Monocytes Percent Auto 10.2 % (2.6-8.5); Neutrophils Absolute Auto 3.9 K/mm3 (1.3-6.7); Neutrophils Percent Auto 64.5 % (45.5-73.1); Platelet Count Result 225 k/mm3 (150-375); Red Blood Count 4.44 M/mm3 (4.2-5.4); Red Cell Distribution Width 12.9 % (11.5-14.5); White Blood Count 6.1 K/mm3 (4.5-10.0)
[2024-09-01 13:26] LABS: Alanine Aminotransferase 20 U/L (6-35); Albumin Level 4.2 g/dL (3.5-5.1); Alkaline Phosphatase 82 U/L (38-126); Anion Gap 10 mmol/L (4-12); Aspartate Amino Transferase 40 U/L (14-36); Bilirubin,Total 0.7 mg/dL (0.2-1.3); Blood Urea Nitrogen 15 mg/dL (7-17); Carbon Dioxide 25 mmol/L (22-30); Chloride 105 mmol/L (98-107); Estimated Glomerular Filt Rate > 60; Glucose 87 mg/dL (65-110); Potassium 3.9 mmol/L (3.4-5.0); Sodium 140 mmol/L (137-145)
== END 2024-09-01 10:29 | disposition home or self-care (01) ==
PROVIDERS: PCP Nurse Practitioner Family; Visit Provider Nurse Practitioner Family
DX: R79.89 Other specified abnormal findings of blood chemistry (principal); R53.83 Other fatigue; R06.02 Shortness of breath
CPT/HCPCS: 36415; 80053; 84443; 85025

== ENCOUNTER 2025-03-09 08:23 | Outpatient (CLI) | payer MEDICARE, OTHER, SELFPAY | END 2025-03-09 08:24 | disposition home or self-care (01) | LOC: ANHAUDASC 08:24 | PROVIDERS: PCP Nurse Practitioner Family; Visit Provider Otolaryngology | DX: H90.3 Sensorineural hearing loss, bilateral (principal); H93.13 Tinnitus, bilateral; H61.21 Impacted cerumen, right ear; Z97.4 Presence of external hearing-aid | CPT/HCPCS: 92557; 92567 ==

== ENCOUNTER 2025-04-19 09:30 | Outpatient (CLI) | payer MEDICARE, OTHER, SELFPAY ==
--- NOTE | 2025-04-19 12:00 | NEURO_ITS ---
Impression: # Complains of numbness of left hand. ? # Moderate left Carpal Tunnel Syndrome. ? # No ulnar neuropathy. ? # Needle/EMG exam mildly abnormal. Nerve Conduction Studies ?Stim Site NR Peak (ms) P-T Amp (?V) Site1 Site2 Delta-P (ms) Dist (cm) Henry (m/s) Left Median Anti Sensory (2-3nd Digit) Wrist ? 5.2 28.7 Wrist 2-3nd Digit 5.2 14.0 27 Wrist ? 5.4 25.3 Wrist 2-3nd Digit 5.2 14.0 27 Left Radial Anti Sensory (Base 1st Digit) Wrist ? 2.7 10.7 Wrist Base 1st Digit 2.7 0.0 Left Ulnar Anti Sensory (5th Digit) Wrist ? 2.5 60.9 Wrist 5th Digit 2.5 14.0 56 ?Stim Site NR Onset (ms) O-P Amp (mV) Site1 Site2 Delta-0 (ms) Dist (cm) Henry (m/s) Left Median Motor (Abd Poll Brev) Wrist ? 4.8 1.7 Elbow Wrist 4.7 27.0 57 Elbow ? 9.5 1.8 Left Ulnar Motor (Abd Dig Minimi) Wrist ? 2.4 7.9 A Elbow Wrist 4.6 26.0 57 A Elbow ? 7.0 7.4 B Elbow Wrist 3.2 18.0 56 B Elbow ? 5.6 7.0 F Wave Studies ?NR F-Lat (ms) L-R F-Lat (ms) Left Median (Mrkrs) (Abd Poll Brev) ? 30.26 Left Ulnar (Mrkrs) (Abd Dig Min) ? 25.81 Electromyography ?Side Muscle Nerve Root Ins Act Fibs Amp Dur Recrt Comment Left 1stDorInt Ulnar C8-T1 Nml Nml Nml Nml Nml Left Ext Indicis Radial (Post Int) C7-8 Nml Nml Nml Nml Nml Left Ext Digitorum Radial (Post Int) C7-8 Nml Nml Nml Nml Nml Left BrachioRad Radial C5-6 Nml Nml Nml Nml Nml Left PronatorTeres Median C6-7 Nml Nml Nml Nml Nml Left Abd Poll Brev Median C8-T1 Nml Nml Nml >12ms +2 Left ABD Dig Min Ulnar C8-T1 Nml Nml Nml Nml Nml Left FlexPolLong Median (Ant Int) C7-8 Nml Nml Nml Nml Nml Left Abd Poll Long Radial (Post Int) C7-8 Nml Nml Nml Nml Nml
--- OUTSIDE RECORDS SUMMARY | 2025-04-19 16:28 | XMS_ITS | Clinical Summary ---
Author Organization [facility] Physician Office Building [address] [place] [id number] Care Team Providers Care Hair Cutter Name Role Phone Kelly, [facility] Primary Care Provider [phone] Haris Fisher MD Unavailable Allergies Active Allergy [...] 07/02/2019 Assessment & Plan (07/02/2019 3:15 PM DIRECTORY OPERATOR): Medically cleared for hearing Aids Eliminate background when having a conversation Reduce caffeine intake, then water or other caffeine free fluids throughout the rest of the day for at least one month Tinnitus Etiology discussed and Handout provided Chronic rhinitis 07/02/2019 Assessment & Plan (07/02/2019 3:15 PM DIRECTORY OPERATOR): Astelin 2 sprays into each nostril while looking down over the sink, do not sniff in or blow nose after use daily Call if no improvement for change to Atrovent Localized osteoporosis witho ut current pathological fracture 05/12/2018 Assessment & Plan (05/12/2018 3:54 PM DIRECTORY OPERATOR): Daily weight bearing exercise Fall precautions discussed [...] on file Legal Sex Female 9:06 AM DIRECTORY OPERATOR Gender Identity Not on file Sexual Orientation Not on file Last Filed Vital Signs Vital Sign Reading Time Taken Comments Blood Pressure 146/92 07/02/2019 10:18 AM DIRECTORY OPERATOR Pulse 74 07/02/2019 10:18 AM DIRECTORY OPERATOR Temperature 36.4 C (97.6 F) 07/02/2019 10:18 AM DIRECTORY OPERATOR Respiratory Rate 14 05/12/2018 2:55 PM DIRECTORY OPERATOR Oxygen Saturation - - Inhaled Oxygen Concentration - - Weight 48.5 kg (107 lb) 07/02/2019 10:18 AM DIRECTORY OPERATOR Height 149.9 cm (4' 11) 07/02/2019 10:18 AM DIRECTORY OPERATOR Body Mass Index 21.61 07/02/2019 10:18 AM DIRECTORY OPERATOR Plan of Treatment Not on file Insurance MEDICARE FOR LIFE Care Teams Hair Cutter Relationship Specialty Start Date End Date [facility] [place] [address] [place] [address] PCP - General 05/04/[place] [id number] [facility] [address] [place] [address] Consulting Physician Endocrinology Diabetes & Metabolism 05/11/18
--- OUTSIDE RECORDS SUMMARY | 2025-04-19 16:28 | XMS_ITS | Patient Health Record ---
Author Organization [facility] Address [address] [place] [id number] Support Name Relationship Address Phone FABIAN HUBBARD Guarantor Unknown [phone] Reason For Referral No Information Plan Of Treatment No Information
== END 2025-04-19 09:31 | disposition home or self-care (01) ==
LOC: ANHNEURO 09:34
PROVIDERS: PCP Family Medicine; Visit Provider Plastic Surgery
DX: G56.02 Carpal tunnel syndrome, left upper limb (principal)
CPT/HCPCS: 95886; 95909